=== PATIENT | male | born 1960 | race Caucasian/White ===

== ENCOUNTER → 2016-08-26 | Outpatient (CLI) | payer BC, MEDICARE ==
[2013-11-27 07:26] VITALS: BP 128/63
[~2016-08-26] MED LIST: ALBU0.63 NEB; ALBU8.5H8 IH; ALPR1TAB2 PO; ASPI-482 PO; CARI350T PO; CRESTOR5 MG PO; ESOM40CA PO; ESOM40CA25 PO; FLUT1DIS3 IH; METF500T4 PO; METO25TA9 PO; OXYC5TAB88 PO; OXYM10TA28 PO; OXYM40TA17 PO
[2016-08-26 08:39] LABS: ALBUMIN 3.8 g/dL (3.4-5.0); CALCIUM 9.2 mg/dL (8.5-10.1); CREATININE 0.9 mg/dL (0.7-1.3); GFR 87.6; POTASSIUM 4.4 mmol/L (3.5-5.1); TOTAL BILIRUBIN 0.4 mg/dL (0.2-1.0); TOTAL PROTEIN 7.6 g/dL (6.4-8.2)
== END | disposition home or self-care (01) ==
LOC: LAB 07:36
PROVIDERS: ATTEND Nurse Practitioner
DX: E78.5 Hyperlipidemia, unspecified (principal)
CPT/HCPCS: 36415; 80053; 80061; 83036

== ENCOUNTER → 2016-10-25 | Outpatient (CLI) | payer BC, MEDICARE ==
[2013-11-27 07:26] VITALS: BP 128/63
--- NOTE | 2016-10-25 15:33 | RAD ---
CT of the head without contrast, 10/25/2016: History: TIA, facial and left arm numbness, memory loss Comparison is made to a study from 10/29/2010. The ventricles are within normal limits in size. There is no shift of the midline structures. There is no evidence of acute intracranial hemorrhage or mass effect. There is calcific plaquing of the distal internal carotid arteries. IMPRESSION: No acute intracranial abnormality is detected. PQRS Compliance Statement: One or more of the following individualized dose reduction techniques were utilized for this examination: 1. Automated exposure control 2. Adjustment of the mA and/or kV according to patient size 3. Use of iterative reconstruction technique
--- NOTE | 2016-10-25 15:51 | RAD ---
CT of the neck without contrast, 10/25/2016: History: TIA, left facial numbness Noncontrast scans were obtained as requested. There is airway narrowing in the supraglottic portion of the larynx. This appears to be due to symmetric mucosal thickening. The subglottic trachea is unremarkable. The thyroid, parotid and submandibular gland show no abnormality. There is moderate calcific plaquing at both carotid bifurcations, worse on the right. Small cervical lymph nodes are evident without pathologic enlargement. There are moderate hypertrophic degenerative changes at scattered facet joints in the cervical spine, worse on the left. There are mild scattered marginal spurs. IMPRESSION: 1. Symmetric supraglottic airway narrowing may be on an inflammatory basis, perhaps accentuated by swallowing or phonation during the scanning process. A neoplastic etiology cannot be excluded. 2. Moderate calcific plaquing at the carotid bifurcations, right greater than left. PQRS Compliance Statement: One or more of the following individualized dose reduction techniques were utilized for this examination: 1. Automated exposure control 2. Adjustment of the mA and/or kV according to patient size 3. Use of iterative reconstruction technique
== END | disposition home or self-care (01) ==
LOC: CT 13:36
PROVIDERS: ATTEND Internal Medicine
DX: G45.9 Transient cerebral ischemic attack, unspecified (principal)
CPT/HCPCS: 70450; 70490

== ENCOUNTER → 2016-11-30 | Outpatient (CLI) | payer BC, MEDICARE ==
[2013-11-27 07:26] VITALS: BP 128/63
--- NOTE | 2016-11-30 16:53 | RAD ---
Carotid ultrasound, 11/30/2016: History: Left-sided weakness Duplex evaluation of the carotid arteries in the neck was performed including grayscale, color-flow and spectral Doppler analysis. There is intimal thickening in both common carotid arteries. There is mild focal plaquing in the mid left common carotid artery. There is mild to moderate atherosclerotic plaquing at both carotid bifurcations. The plaques are partially calcified. The peak systolic velocity in the right internal carotid artery is 113 cm/s with an end-diastolic velocity of 46 cm/s. The internal carotid to common carotid artery ratio is 1.3. On the left peak systolic velocity in the internal carotid artery is 119 cm/s with an end-diastolic velocity of 42 cm/s. The internal carotid to common carotid artery ratio is 1.4. These Doppler findings suggest luminal narrowing in the 0-50% diameter range bilaterally. Antegrade flow is present in both vertebral arteries in the neck. IMPRESSION: Mild to moderate atherosclerotic plaquing at both carotid bifurcations with underlying luminal narrowing in the 0-50% diameter range bilaterally. Note: Stenosis calculations for CTA, MRA and conventional angiography are based upon determination of the distal ICA diameter in accordance with the NASCET methodology. Stenosis calculations for Doppler studies are derived from validated velocity criteria which are known to correlate with NASCET methodology of determining stenosis.
== END | disposition home or self-care (01) ==
LOC: US 15:14
PROVIDERS: ATTEND Family Medicine
DX: I65.23 Occlusion and stenosis of bilateral carotid arteries (principal)
CPT/HCPCS: 93880

== ENCOUNTER → 2017-01-02 | Outpatient (CLI) | payer BC, MEDICARE ==
[2013-11-27 07:26] VITALS: BP 128/63
[~2017-01-02] MED LIST changes: +METO-239 PO; -METO25TA9 PO
[2017-01-02 09:20] LABS: ALBUMIN 3.8 g/dL (3.4-5.0); ALBUMIN/GLOBULIN RATIO 1.1 (1.0-1.7); CREATININE 0.9 mg/dL (0.7-1.3); GFR 87.6; POTASSIUM 4.8 mmol/L (3.5-5.1); TOTAL BILIRUBIN 0.2 mg/dL (0.2-1.0); TOTAL PROTEIN 7.4 g/dL (6.4-8.2)
== END | disposition home or self-care (01) ==
LOC: LAB 08:28
PROVIDERS: ATTEND Nurse Practitioner
DX: E78.2 Mixed hyperlipidemia (principal)
CPT/HCPCS: 36415; 80053; 80061

== ENCOUNTER → 2017-06-01 | Outpatient (CLI) | payer BC, MEDICARE ==
[2013-11-27 07:26] VITALS: BP 128/63
--- NOTE | 2017-06-01 21:41 | RAD ---
CT chest without intravenous contrast History: Chest wall pain Comparison: None. Technique: Helical CT of the chest was performed without intravenous contrast. Exposure: One or more of the following individualized dose reduction techniques were utilized for this examination: 1. Automated exposure control 2. Adjustment of the mA and/or kV according to patient size 3. Use of iterative reconstruction technique Findings: Coronary artery calcifications are seen. Mild aortic atherosclerosis is seen. Visualized thyroid is symmetric. No pericardial thickening is identified. Cardiac chambers do not appear enlarged. No mediastinal lymphadenopathy is seen. Trachea and mainstem bronchi appear patent. Mild centrilobular emphysematous changes of lungs can be seen. No pneumothorax or pleural effusion is identified. No acute airspace disease is appreciated. Images of the upper abdomen demonstrate cholecystectomy clips. No displaced rib fractures are identified. Impression: 1. No acute abnormality identified in the chest. 2. Mild emphysema. Electronically signed by: Willis Crenshaw MD (06/01/2017 9:38 PM) [facility]
== END | disposition home or self-care (01) ==
LOC: RAD 17:02
PROVIDERS: ATTEND Family Medicine
DX: R07.89 Other chest pain (principal); J43.9 Emphysema, unspecified; F17.210 Nicotine dependence, cigarettes, uncomplicated
CPT/HCPCS: 71250

== ENCOUNTER 2018-04-24 18:33 | Emergency (ER) | payer BC, MEDICARE ==
[~2018-04-24] VITALS: Ht 175.3 cm; Wt 101.3 kg
[~2018-04-24 18:33] MED LIST changes: +ALBU2.5V8 IH; -ALBU8.5H8 IH; +METF500T16 PO; -METF500T4 PO
--- NOTE | 2018-04-24 18:57 | ED.ADGEN ---
Past History Past Medical History: Anxiety, CAD, Diabetes, Hypertension, CO, Other Past Surgical History: Appendectomy, Cholecystectomy, Other Smoking: Greater than 1 pack/day Alcohol Use: None Drug Use: None Adult General Chief Complaint Chief Complaint epigastric pain HPI HPI 57 years old gentleman with multiple medical problems including #1 COPD next number coronary artery disease presented to the emergency department with epigastric pain radiating to the back describes as stabbing pain constant is being getting worse associated with nausea no vomiting no diarrhea no urgency no frequency no hematuria. Patient denies chest pain no shortness breath denies palpitations no syncope no presyncope Review of Systems Review of Systems Constitutional: Denies fever or chills [] Eyes: Denies change in visual acuity, redness, or eye pain [] HENT: Denies nasal congestion or sore throat [] Respiratory: Denies cough or shortness of breath [] Cardiovascular: No additional information not addressed in HPI [] GI: , vomiting, bloody stools or diarrhea [] : Denies dysuria or hematuria [] Musculoskeletal: Denies back pain or joint pain [] Integument: Denies rash or skin lesions [] Neurologic: Denies headache, focal weakness or sensory changes [] Endocrine: Denies polyuria or polydipsia [] All other systems were reviewed and found to be within normal limits, except as documented in this note. Current Medications Current Medications Current Medications Medications (Trade) Dose Ordered Sig/Grupo Start Time Stop Time Status Last Admin Dose Admin Multi-Ingredient Mouthwash/Gargle (Gi Cocktail) 20 ml 1X ONCE 04/24/18 20:45 04/24/18 20:46 DC 04/24/18 20:49 20 ML Pantoprazole Sodium (Protonix) 40 mg 1X ONCE 04/24/18 20:45 04/24/18 20:46 DC 04/24/18 20:49 40 MG Allergies Allergies Allergies Coded Allergies Type Severity Reaction Last Updated Verified Iodinated Contrast- Oral and IV Dye Allergy Severe Anaphylaxis 04/24/18 Yes Sulfa (Sulfonamide Antibiotics) Allergy Intermediate Nausea and Vomiting Yes Physical Exam Physical Exam Constitutional: Well developed, well nourished, no acute distress, non-toxic appearance. [] HENT: Normocephalic, atraumatic, bilateral external ears normal, oropharynx moist, no oral exudates, nose normal. [] Eyes: PERRLA, EOMI, conjunctiva normal, no discharge. [] Neck: Normal range of motion, no tenderness, supple, no stridor. [] Cardiovascular:Heart rate regular rhythm, no murmur [] Lungs & Thorax: Bilateral breath sounds clear to auscultation [] Abdomen: Bowel sounds normal, soft, epigastric tenderness, no masses, no pulsatile masses. [] Skin: Warm, dry, no erythema, no rash. [] Back: No tenderness, no CVA tenderness. [] Extremities: No tenderness, no cyanosis, no clubbing, ROM intact, no edema. [] Neurologic: Alert and oriented X 3, normal motor function, normal sensory function, no focal deficits noted. [] Psychologic: Affect normal, judgement normal, mood normal. [] Current Patient Data Vital Signs Vital Signs Date Time Temp Pulse Resp B/P (MAP) Pulse Ox O2 Delivery O2 Flow Rate FiO2 04/24/18 18:36 98.2 62 18 98 Room Air Lab Results Laboratory Tests Test 04/24/18 18:55 04/24/18 20:50 White Blood Count 8.4 x10^3/uL (4.0-11.0) Red Blood Count 4.66 x10^6/uL (4.30-5.70) Hemoglobin 16.1 g/dL (13.0-17.5) Hematocrit 47.8 % (39.0-53.0) Mean Corpuscular Volume 102 fL (79-100) H Mean Corpuscular Hemoglobin 35 pg (25-35) Mean Corpuscular Hemoglobin Concent 34 g/dL (31-37) Red Cell Distribution Width 13.5 % (11.5-14.5) Platelet Count 218 x10^3/uL (140-400) Neutrophils (%) (Auto) 64 % (31-73) Lymphocytes (%) (Auto) 24 % (24-48) Monocytes (%) (Auto) 8 % (0-9) Eosinophils (%) (Auto) 3 % (0-3) Basophils (%) (Auto) 1 % (0-3) Neutrophils # (Auto) 5.4 x10^3uL (1.8-7.7) Lymphocytes # (Auto) 2.0 x10^3/uL (1.0-4.8) Monocytes # (Auto) 0.7 x10^3/uL (0.0-1.1) Eosinophils # (Auto) 0.2 x10^3/uL (0.0-0.7) Basophils # (Auto) 0.1 x10^3/uL (0.0-0.2) Sodium Level 143 mmol/L (136-145) Potassium Level 3.7 mmol/L (3.5-5.1) Chloride Level 103 mmol/L (98-107) Carbon Dioxide Level 31 mmol/L (21-32) Anion Gap 9 (6-14) Blood Urea Nitrogen 6 mg/dL (8-26) L Creatinine 0.9 mg/dL (0.7-1.3) Estimated GFR (Cockcroft-Gault) 87.3 BUN/Creatinine Ratio 7 (6-20) Glucose Level 120 mg/dL (70-99) H Calcium Level 9.2 mg/dL (8.5-10.1) Total Bilirubin 0.3 mg/dL (0.2-1.0) Aspartate Amino Transferase (AST) 13 U/L (15-37) L Alanine Aminotransferase (ALT) 20 U/L (16-63) Alkaline Phosphatase 70 U/L (46-116) Troponin I Quantitative < 0.017 ng/mL (0-0.055) < 0.017 ng/mL (0-0.055) Total Protein 7.7 g/dL (6.4-8.2) Albumin 4.1 g/dL (3.4-5.0) Albumin/Globulin Ratio 1.1 (1.0-1.7) Lipase 132 U/L (73-393) EKG EKG [] Radiology/Procedures Radiology/Procedures [] Course & Med Decision Making Course & Med Decision Making Pertinent Labs and Imaging studies reviewed. (See chart for details) During the emergency medicine department stay patient remained asymptomatic he responded to GI cocktail 2 serial troponins were negative patient to be discharged home and follow up with his primary care provider [] Final Impression Final Impression [] Problems: (1) Epigastric abdominal pain Dragon Disclaimer Dragon Disclaimer This electronic medical record was generated, in whole or in part, using a voice recognition dictation system. ARI BALLARD MD Apr 24, 2018 18:57
[2018-04-24 19:17] LABS: BASO # 0.1 x10^3/uL (0.0-0.2); BASO % 1 % (0-3); EOS # 0.2 x10^3/uL (0.0-0.7); EOS % 3 % (0-3); HEMATOCRIT 47.8 % (39.0-53.0); HEMOGLOBIN 16.1 g/dL (13.0-17.5); LYMPH % 24 % (24-48); MEAN CORPUSCULAR HEMOGLOBIN 35 pg (25-35); MEAN CORPUSCULAR HGB CONC 34 g/dL (31-37); MEAN CORPUSCULAR VOLUME 102 fL (79-100); MONO # 0.7 x10^3/uL (0.0-1.1); MONO % 8 % (0-9); NEUT # 5.4 x10^3uL (1.8-7.7); NEUT % 64 % (31-73); PLATELET COUNT 218 x10^3/uL (140-400); RED BLOOD COUNT 4.66 x10^6/uL (4.30-5.70); RED CELL DISTRIBUTION WIDTH 13.5 % (11.5-14.5); WHITE BLOOD COUNT 8.4 x10^3/uL (4.0-11.0)
--- NOTE | 2018-04-24 19:27 | RAD ---
PROCEDURE: CHEST AP ONLY CLINICAL INDICATION: Chest pain COMPARISON: None FINDINGS: No pneumothorax identified. Cardiac and mediastinal contours unremarkable. No pulmonary consolidation or acute airspace disease. No acute osseous abnormalities identified. IMPRESSION: No pulmonary consolidation or acute airspace disease. Electronically signed by: Yinka Kate DO (04/24/2018 7:22 PM) [facility]
[2018-04-24 19:37] LABS: ALBUMIN 4.1 g/dL (3.4-5.0); ALBUMIN/GLOBULIN RATIO 1.1 (1.0-1.7); CALCIUM 9.2 mg/dL (8.5-10.1); CREATININE 0.9 mg/dL (0.7-1.3); GFR 87.3; POTASSIUM 3.7 mmol/L (3.5-5.1); TOTAL BILIRUBIN 0.3 mg/dL (0.2-1.0); TOTAL PROTEIN 7.7 g/dL (6.4-8.2)
--- NOTE | 2018-04-24 19:48 | RAD ---
PQRS Compliance statement: One or more of the following individualized dose reduction techniques were utilized for this examination: 1. Automated exposure control. 2. Adjustment of the mA and/or kV according to patient size. 3. Use of iterative reconstruction technique. Indication:Upper right sided abdomen pain TECHNIQUE: CT abdomen and pelvis without IV contrast with multiplanar reformats. COMPARISON: 06/01/2017 FINDINGS: Limited evaluation of solid abdominal and pelvic organs due to lack of IV contrast. Heart is normal in size. No pericardial or pleural effusion. Clear lung bases. Diffuse hepatic steatosis. Liver is normal in morphology. Spleen is unenlarged. Status post cholecystectomy. Noncontrast appearance of the pancreas is within normal limits. Adrenal glands demonstrate no nodularity. No nephrolithiasis or hydronephrosis. No enlarged retroperitoneal or pelvic adenopathy. Moderate diffuse atherosclerotic disease of the abdominal aorta and bilateral iliac arteries. No free pelvic fluid or ascites. No bowel obstruction. Appendix is not visualized. Small bilateral fat-containing inguinal hernia. Circumferential urinary bladder wall thickening is seen. The prostate and seminal vesicles show no large mass. No pneumoperitoneum. Bilateral L5 pars defect. No suspicious bony lesion. IMPRESSION: Limited evaluation of solid abdominal and pelvic organs due to lack of IV contrast. 1. Hepatic steatosis. 2. Circumferential wall thickening of the urinary bladder may be secondary to suboptimal distention or cystitis. Correlate with urinalysis. Electronically signed by: Yinka Kate DO (04/24/2018 7:43 PM) [facility]
[2018-04-24] MEDS: PANTOPRAZOLE 40 MG TABLET. PO ONE (20:49)
[2018-04-24] MEDS: LIDO:MAALOX 1:1 20 ML SINGLE DOSE. PO ONE (20:49)
[2018-04-24] MEDS ORDERED: OXYC30TA21 PO (21:19)
[2018-04-24] MEDS ORDERED: EVOL140S SQ (21:22)
[2018-04-24 21:45] VITALS: BP 134/73
--- NOTE | 2018-04-25 02:49 | EKG ---
[address] [address] Test Date: 2018-04-24 Test Time: 18:43:28 Pat Name: PAULY NICHOLS Department: Room: Gender: M Scrap Collector: : 1960 Requested By: ARI BALLARD Order Number: [id number] Reading MD: Measurements Intervals [place] Rate: 61 P: 66 MT: 136 QRS: 38 QRSD: 96 T: 34 QT: 408 QTc: 416 Interpretive Statements SINUS RHYTHM QRS(T) CONTOUR ABNORMALITY CONSIDER ANTEROLATERAL MYOCARDIAL DAMAGE POSSIBLY ABNORMAL ECG RI6.01 No previous ECG available for comparison
== END 2018-04-24 21:45 | disposition home or self-care (01) ==
LOC: ER 18:33
DX: R10.13 Epigastric pain (principal); R11.0 Nausea; J44.9 Chronic obstructive pulmonary disease, unspecified; F41.9 Anxiety disorder, unspecified; E11.9 Type 2 diabetes mellitus without complications; I25.10 Atherosclerotic heart disease of native coronary artery without angina pectoris; I25.2 Old myocardial infarction; F17.200 Nicotine dependence, unspecified, uncomplicated; Z90.89 Acquired absence of other organs; Z90.49 Acquired absence of other specified parts of digestive tract; Z91.041 Radiographic dye allergy status; Z88.2 Allergy status to sulfonamides
CPT/HCPCS: 36415; 71045; 74176; 80053; 83690; 84484; 85025; 93005; 99284-25

== ENCOUNTER → 2018-05-11 | Outpatient (CLI) | payer BC, MEDICARE ==
[2018-04-24 21:45] VITALS: BP 134/73
[~2018-05-11] MED LIST changes: +EVOL140S SQ; +OXYC30TA21 PO
--- NOTE | 2018-05-11 12:38 | RAD ---
CT of the head without contrast, 05/11/2018: HISTORY: Headache Noncontrast scans were obtained as requested, apparently secondary to an iodine allergy. Comparison is made to a study from 10/25/2016. The ventricles are within normal limits in size. There is no shift of the midline structures. There is no evidence of acute intracranial hemorrhage or mass effect. There is calcific plaquing of the distal internal carotid arteries. IMPRESSION: No acute intracranial abnormality is detected. CT of the neck without contrast, 05/11/2018: HISTORY: Left submandibular swelling Noncontrast scans were obtained and compared to a study from 10/25/2016. The parotid and submandibular glands are unremarkable. There is minimal streaky increased density in the subcutaneous soft tissues in the submandibular region bilaterally compatible with nonspecific edema. No discrete mass or fluid collection is evident. Several small submandibular lymph nodes are seen. These are larger than on the previous study, however, they do not appear to be pathologically enlarged. There are likely reactive in nature. The patient is edentulous. The laryngeal region is unremarkable. The thyroid gland shows no abnormality. No definite cervical adenopathy is seen. There is moderate calcific plaquing at both carotid bifurcations. Mild to moderate multilevel degenerative changes are present in the cervical spine. IMPRESSION: 1. Moderate streaky subcutaneous edema in the submandibular region. 2. No discrete fluid collection or neck mass is identified. 3. Moderate calcific plaquing at the carotid bifurcations. PQRS Compliance Statement: One or more of the following individualized dose reduction techniques were utilized for this examination: 1. Automated exposure control 2. Adjustment of the mA and/or kV according to patient size 3. Use of iterative reconstruction technique Electronically signed by: Diaz Harrison MD (05/11/2018 12:35 PM) [facility]
== END | disposition home or self-care (01) ==
LOC: CT 09:00
PROVIDERS: ATTEND Internal Medicine
DX: R22.0 Localized swelling, mass and lump, head (principal); I70.8 Atherosclerosis of other arteries
CPT/HCPCS: 70450; 70490

== ENCOUNTER → 2019-03-29 | Outpatient (CLI) | payer BC, MEDICARE ==
[~2019-03-29] MED LIST changes: -EVOL140S SQ; +EVOL140S2 SQ
[2019-03-29 13:00] LABS: ALBUMIN 3.9 g/dL (3.4-5.0); ALBUMIN/GLOBULIN RATIO 1.1 (1.0-1.7); CREATININE 0.9 mg/dL (0.7-1.3); POTASSIUM 3.5 mmol/L (3.5-5.1); TOTAL BILIRUBIN 0.5 mg/dL (0.2-1.0); TOTAL PROTEIN 7.4 g/dL (6.4-8.2)
== END | disposition home or self-care (01) ==
LOC: LAB 12:03
PROVIDERS: ATTEND Nurse Practitioner
DX: E78.5 Hyperlipidemia, unspecified (principal)
CPT/HCPCS: 36415; 80053; 80061

== ENCOUNTER → 2019-06-14 | Outpatient (CLI) | payer BC, MEDICARE ==
[~2019-06-14] MED LIST changes: +IOHEXOL 300 MG/ML 75 ML VIAL. IV ONE
--- NOTE | 2019-06-14 12:53 | RAD ---
CT study of the chest with and without contrast Clinical indications: Squamous cell carcinoma of the larynx. Hemoptysis. Shortness of breath. Upper back pain and chest pain. TECHNIQUE: Noncontrast helical CT scanning of the chest was performed. Following IV infusion of 75 cc of Omnipaque 300, repeat helical CT scanning of the chest was performed. PQRS compliance Statement One or more of the following individualized dose reduction techniques were utilized for this study: 1. Automated exposure control 2. Adjustment of the mA and/or kV according to patient size 3. Use of iterative reconstruction technique COMPARISON: June 01, 2017. FINDINGS: No hyperdense intramural hemorrhage is seen within the thoracic aorta. No focal aneurysmal dilatation or dissection of the thoracic aorta is seen. There is soft and calcified plaque formation involving the thoracic aorta. Calcified atheromatous disease of the coronary arteries is seen. The heart size is normal and no pericardial effusion is seen. No enlarged thoracic lymphadenopathy is evident. Small ill-defined groundglass lung infiltrates are seen within the periphery of right upper lobe. No lung mass is evident. Left lung field is clear. No pleural effusion or pneumothorax is evident. There is soft tissue thickening of the distal trachea which may be due to adherent mucus. Proximal bronchial tree is patent. No lytic process is seen. No adrenal mass is seen. IMPRESSION: Ill-defined round groundglass lung infiltrates are seen in the periphery of the right upper lobe consistent with infectious or inflammatory lung disease. This is not the typical appearance of metastatic disease. Calcified atheromatous disease of the coronary arteries. Electronically signed by: Andre Coronel MD (06/14/2019 12:50 PM) [facility]
--- NOTE | 2019-06-14 13:37 | RAD ---
CT study of the soft tissues of the neck with contrast Clinical indications: History of cancer of the larynx diagnosed 4 years ago. Hemoptysis and shortness of air. Upper back pain. TECHNIQUE: After IV infusion of 75 cc of Omnipaque 300, helical CT scanning of the neck from the base of skull down through the lung apices was performed. PQRS compliance Statement One or more of the following individualized dose reduction techniques were utilized for this study: 1. Automated exposure control 2. Adjustment of the mA and/or kV according to patient size 3. Use of iterative reconstruction technique COMPARISON: 05/11/2018. FINDINGS: No soft tissue mass of the true vocal cords or false vocal cords or larynx or epiglottis or aryepiglottic folds is seen. The preepiglottic fat space is unremarkable. No thyroid gland mass is seen. No enlarged cervical lymphadenopathy or soft tissue mass is evident. No abnormal enlargement of the palatine tonsils or adenoids is seen. The parotid and submandibular salivary glands are normal. No lytic process is seen. IMPRESSION: No soft tissue mass or enlarged cervical lymphadenopathy is evident. Electronically signed by: Andre Coronel MD (06/14/2019 1:34 PM) [facility]
== END | disposition home or self-care (01) ==
LOC: CT 08:52
PROVIDERS: ATTEND Otolaryngology
DX: C32.9 Malignant neoplasm of larynx, unspecified (principal); R91.8 Other nonspecific abnormal finding of lung field; I25.10 Atherosclerotic heart disease of native coronary artery without angina pectoris; I70.0 Atherosclerosis of aorta; R04.2 Hemoptysis
CPT/HCPCS: 70491; 71270; Q9967

== ENCOUNTER → 2020-08-25 | Outpatient (CLI) | payer BC, MEDICARE ==
[~2020-08-25] MED LIST changes: -IOHEXOL 300 MG/ML 75 ML VIAL. IV ONE
--- NOTE | 2020-08-25 18:15 | RAD ---
XR CHEST 2V INDICATION: COUGH COMPARISON STUDY: None. FINDINGS: Lungs: Normal lung volume. No pulmonary mass or consolidation. The tracheobronchial tree and hilar st ructures are normal. Pleura: No pleural effusion or pneumothorax. Heart and Mediastinum: The cardiomediastinal silhouette is normal. The great vessels of the thorax ar e normal. Bones and Soft Tissues: The bones and soft tissues are within normal limits. IMPRESSION: No acute cardiopulmonary process. Electronically signed by: Austin Coleman MD (08/25/2020 6:13 PM) [facility]
== END ==
LOC: PMG 17:24
PROVIDERS: ATTEND Nurse Practitioner Family
DX: R05 Cough (principal)
CPT/HCPCS: 71046

== ENCOUNTER 2021-03-03 11:14 | Emergency (ER) | payer BC, MEDICARE ==
[~2021-03-03] VITALS: Ht 175.3 cm; Wt 93.0 kg
[2021-03-03] MEDS ORDERED: DEXAMETHASONE SOD PHOS 10 MG/ML VIAL. PO ONE (12:00)
--- NOTE | 2021-03-03 12:17 | EKG ---
[address] [address] Test Date: 2021-03-03 Test Time: 12:09:03 Pat Name: PAULY NICHOLS Department: Room: Gender: F Customer Success Associate: NAIDA : 1960 Requested By: CHELSEA REYES Order Number: [id number] Reading MD: Deric Coleman Measurements Intervals [place] Rate: 65 P: 60 NC: 152 QRS: 36 QRSD: 88 T: 23 QT: 432 QTc: 455 Interpretive Statements SINUS RHYTHM NORMAL ECG RI6.02 Compared to ECG 04/24/2018 18:43:28 No significant changes Electronically Signed On 03-04-2021 12:35:46 [employer] by Deric Coleman
[2021-03-03 12:45] LABS: BASO % 1 % (0-3); EOS # 0.2 x10^3/uL (0.0-0.7); EOS % 4 % (0-3); HEMATOCRIT 45.4 % (36.0-47.0); HEMOGLOBIN 15.4 g/dL (12.0-15.5); LYMPH # 1.7 x10^3/uL (1.0-4.8); LYMPH % 29 % (24-48); MEAN CORPUSCULAR HEMOGLOBIN 35 pg (25-35); MEAN CORPUSCULAR HGB CONC 34 g/dL (31-37); MEAN CORPUSCULAR VOLUME 103 fL (79-100); MONO # 0.6 x10^3/uL (0.0-1.1); MONO % 11 % (0-9); NEUT # 3.3 x10^3uL (1.8-7.7); NEUT % 56 % (31-73); PLATELET COUNT 201 x10^3/uL (140-400); RED CELL DISTRIBUTION WIDTH 13.1 % (11.5-14.5); WHITE BLOOD COUNT 5.9 x10^3/uL (4.0-11.0)
[2021-03-03 12:52] LABS: CALCIUM 8.7 mg/dL (8.5-10.1); CREATININE 0.9 mg/dL (0.6-1.0); GFR 64.1; POTASSIUM 4.3 mmol/L (3.5-5.1)
[2021-03-03 12:57] LABS: INFLUENZA A PATIENT NEGATIVE (NEGATIVE); INFLUENZA B PATIENT NEGATIVE (NEGATIVE)
--- NOTE | 2021-03-03 13:06 | RAD ---
EXAM: XR CHEST 1V 03/03/2021 12:40 PM CLINICAL INDICATION: AP view of the chest COMPARISON: Chest radiograph 08/25/2020 TECHNIQUE: AP view of the chest FINDINGS: The heart is normal in size. Lungs are adequately expanded. No consolidation, pleural effus ion, or pneumothorax. No acute osseous abnormality. IMPRESSION: No acute cardiopulmonary abnormality. Electronically signed by: Meryl Montenegro MD (03/03/2021 1:04 PM) [id number]
[2021-03-03 13:07] LABS: ALBUMIN/GLOBULIN RATIO 1.2 (1.0-1.7); TOTAL BILIRUBIN 0.4 mg/dL (0.2-1.0); TOTAL PROTEIN 7.3 g/dL (6.4-8.2)
[2021-03-03] MEDS ORDERED: IPRATRPIUM/ALBUTEROL 0.5/2.5MG 3 ML NEBU. NEB ONE (13:15)
[2021-03-03] MEDS ORDERED: IPRATRPIUM/ALBUTEROL 0.5/2.5MG 3 ML NEBU. ONE (13:20)
[2021-03-03 13:55] VITALS: BP 161/88
[2021-03-03] MEDS ORDERED: PRED20TA PO (13:56)
[2021-03-03] MEDS ORDERED: FLUT1DIS IH (13:56)
--- NOTE | 2021-03-03 13:56 | PHYS DOC ---
Past History Past Medical History: Anxiety, CAD, COPD, Diabetes, Hypertension, AR, Other Additional Past Medical Histor: Sleep apnea, radiation for throat CA (CHELSEA REYES APRN) Past Surgical History: Angioplasty, Appendectomy, Cholecystectomy, Other (CHELSEA REYES APRN) Smoking: Greater than 1 pack/day Alcohol Use: None Drug Use: None (CHELSEA REYES APRN) General Adult EDM: Chief Complaint: SHORTNESS OF BREATH HPI: HPI: Patient is a 60-year-old male that presents today with a 3-day history of shortness of air. Patient does have a longstanding COPD/emphysema lung condition, for which she wears 2 L nasal cannula at night to sleep. He states that over the last 3 days has had increased shortness of air and congestion, he presented to the urgent care at [facility], and his oxygenation was 86% they then proceeded to send him to the emergency department for further evaluation. Patient states that his entire family has been sick with some kind of viral cold, he does state that he has had all 3 Covid vaccines, including his flu shot, he states he has had cough as well. Patient denies fever and chills, or chest pain. Patient was placed on 2 L nasal cannula here in the emergency department and oxygenation is up to 2 L per nasal cannula. She states that he does take DuoNeb treatments every 4-6 hours as well and he states they have have been helping, he does have a rescue inhaler that he has been using every 4 hours as well. Patient does had not have a primary sample card maker, he does see a [facility] physician for all of his medical needs. Patient at this time has refused an IV, he is okay with blood being drawn with a straight stick, would talk to him about possibly admitting for hypoxia due to low oxygenation level upon arrival he states that he has oxygen at home that he can be at home and be treated at home for any kind of illnesses. (CHELSEA REYES APRN) Review of Systems: Review of Systems: Constitutional: Denies fever or chills Eyes: Denies change in visual acuity HENT: Denies nasal congestion or sore throat Respiratory: shortness of air and cough Cardiovascular: Denies chest pain or edema GI: Denies abdominal pain, nausea, vomiting, bloody stools or diarrhea : Denies dysuria Musculoskeletal: Denies back pain or joint pain Integument: Denies rash Neurologic: Denies headache, focal weakness or sensory changes Endocrine: Denies polyuria or polydipsia Lymphatic: Denies swollen glands Psychiatric: Denies depression or anxiety (CHELSEA REYES APRN) Current Medications: Current Meds: Current Medications Medications (Trade) Dose Ordered Sig/Grupo Start Time Stop Time Status Last Admin Dose Admin Albuterol/ Ipratropium (Duoneb) 3 ml STK-MED ONCE 03/03/21 13:20 03/03/21 13:20 DC Dexamethasone Sodium Phosphate (Decadron) 10 mg 1X ONCE 03/03/21 12:00 03/03/21 12:01 DC 03/03/21 12:22 10 MG (CHELSEA REYES APRN) Allergies: Allergies: Allergies Coded Allergies Type Severity Reaction Last Updated Verified Iodinated Contrast Media Allergy Severe Anaphylaxis 03/03/21 Yes Sulfa (Sulfonamide Antibiotics) Allergy Intermediate Nausea and Vomiting 03/03/21 Yes (CHELSEA REYES APRN) Physical Exam: PE: Constitutional: Well developed, well nourished, no acute distress, non-toxic appearance. [] HENT: Normocephalic, atraumatic, bilateral external ears normal, oropharynx moist, no oral exudates, nose normal. [] Eyes: PERRLA, EOMI, conjunctiva normal, no discharge. [] Neck: Normal range of motion, no tenderness, supple, no stridor. [] Cardiovascular:Heart rate regular rhythm, no murmur [] Lungs & Thorax: Bilateral breath sounds wheezes throughout Abdomen: Bowel sounds normal, soft, no tenderness, no masses, no pulsatile masses. [] Skin: Warm, dry, no erythema, no rash. [] Back: No tenderness, no CVA tenderness. [] Extremities: No tenderness, no cyanosis, no clubbing, ROM intact, no edema. [] Neurologic: Alert and oriented X 3, normal motor function, normal sensory function, no focal deficits noted. [] Psychologic: Affect normal, judgement normal, mood normal. [] (CHELSEA REYES APRN) Current Patient Data: Labs: Laboratory Tests Test 03/03/21 12:13 03/03/21 12:17 Influenza Type A (Rapid) Negative (NEGATIVE) Influenza Type B (Rapid) Negative (NEGATIVE) SARS-CoV-2 Antigen (Rapid) Negative (NEGATIVE) White Blood Count 5.9 x10^3/uL (4.0-11.0) Red Blood Count 4.40 x10^6/uL (3.50-5.40) Hemoglobin 15.4 g/dL (12.0-15.5) Hematocrit 45.4 % (36.0-47.0) Mean Corpuscular Volume 103 fL (79-100) H Mean Corpuscular Hemoglobin 35 pg (25-35) Mean Corpuscular Hemoglobin Concent 34 g/dL (31-37) Red Cell Distribution Width 13.1 % (11.5-14.5) Platelet Count 201 x10^3/uL (140-400) Neutrophils (%) (Auto) 56 % (31-73) Lymphocytes (%) (Auto) 29 % (24-48) Monocytes (%) (Auto) 11 % (0-9) H Eosinophils (%) (Auto) 4 % (0-3) H Basophils (%) (Auto) 1 % (0-3) Neutrophils # (Auto) 3.3 x10^3uL (1.8-7.7) Lymphocytes # (Auto) 1.7 x10^3/uL (1.0-4.8) Monocytes # (Auto) 0.6 x10^3/uL (0.0-1.1) Eosinophils # (Auto) 0.2 x10^3/uL (0.0-0.7) Basophils # (Auto) 0.0 x10^3/uL (0.0-0.2) Sodium Level 144 mmol/L (136-145) Potassium Level 4.3 mmol/L (3.5-5.1) Chloride Level 103 mmol/L (98-107) Carbon Dioxide Level 32 mmol/L (21-32) Anion Gap 9 (6-14) Blood Urea Nitrogen 14 mg/dL (7-20) Creatinine 0.9 mg/dL (0.6-1.0) Estimated GFR (Cockcroft-Gault) 64.1 BUN/Creatinine Ratio 16 (6-20) Glucose Level 111 mg/dL (70-99) H Lactic Acid Level 0.6 mmol/L (0.4-2.0) Calcium Level 8.7 mg/dL (8.5-10.1) Total Bilirubin 0.4 mg/dL (0.2-1.0) Aspartate Amino Transferase (AST) 19 U/L (15-37) Alanine Aminotransferase (ALT) 31 U/L (14-59) Alkaline Phosphatase 69 U/L (46-116) Troponin I High Sensitivity 7 ng/L (4-50) Total Protein 7.3 g/dL (6.4-8.2) Albumin 4.0 g/dL (3.4-5.0) Albumin/Globulin Ratio 1.2 (1.0-1.7) Vital Signs: Vital Signs Date Time Temp Pulse Resp B/P (MAP) Pulse Ox O2 Delivery O2 Flow Rate FiO2 03/03/21 13:24 94 Nasal Cannula 2.0 03/03/21 11:15 98.3 72 19 132/87 (102) 86 Vital Signs Date Time Temp Pulse Resp B/P (MAP) Pulse Ox O2 Delivery O2 Flow Rate FiO2 03/03/21 13:24 94 Nasal Cannula 2.0 03/03/21 11:15 98.3 72 19 132/87 (102) (CHELSEA REYES RN ORTHOPEDIC) EKG: EKG: EKG done at [address] Sorto at 1214 no STEMI, interpretation shows normal sinus rhythm at a rate of 65 MI interval of 152 ms with a QT interval 455 ms [] (CHELSEA REYES RN ORTHOPEDIC) Radiology/Procedures: Radiology/Procedures: REASON: soa PROCEDURE: CHEST AP ONLY EXAM: XR CHEST 1V 03/03/2021 12:40 PM CLINICAL INDICATION: AP view of the chest COMPARISON: Chest radiograph 08/25/2020 TECHNIQUE: AP view of the chest FINDINGS: The heart is normal in size. Lungs are adequately expanded. No co nsolidation, pleural effusion, or pneumothorax. No acute osseous abnormality. IMPRESSION: No acute cardiopulmonary abnormality.[] (CHELSEA REYES RN ORTHOPEDIC) Heart Score: C/O Chest Pain: N/A Risk Factors: Risk Factors: DM, Current or recent (<one month) smoker, HTN, HLP, family history of CAD, obesity. Risk Scores: Score 0 - 3: 2.5% MACE over next 6 weeks - Discharge Home Score 4 - 6: 20.3% MACE over next 6 weeks - Admit for Clinical Observation Score 7 - 10: 72.7% MACE over next 6 weeks - Early Invasive Strategies (CHELSEA REYES APRN) Course & Med Decision Making: Course & Med Decision Making Pertinent Labs and Imaging studies reviewed. (See chart for details) 1346 patient states he is feeling somewhat better, sats currently on 2 L are 93%, patient does have oxygen at home and has the ability to place himself on 2 L at home for which she is on at night he can wear it all the time, patient encouraged to follow-up with the sample card maker soon as possible, will place patient on a prednisone dose, will also reorder his Advair puffer to be take twice daily. Patient instructed to return to the emergency department for increased shortness of breath, bluing of his lips or fingertips, or development of a fever (CHELSEA REYES APRN) Dragon Disclaimer: Dragon Disclaimer: This electronic medical record was generated, in whole or in part, using a voice recognition dictation system. (CHELSEA REYES APRN) Departure Departure: Impression: Primary Impression: COPD exacerbation Disposition: HOME / SELF CARE / HOMELESS Condition: STABLE Referrals: MONAE HARVEY MD (PCP) Additional Instructions: Follow up with Dr Medina or Dr Evan LIRA at [address] [place] [address] Continue with DuoNeb treatments every 4-6 hours Wear your oxygen 2 L per nasal cannula at all time Advair 1 puff every 12 hours Prednisone to start on Monday 60 mg once daily for 5 days Return to the emergency department for increased work of breathing, bluing of your lips, inability to catch her breath, or symptoms worsen Scripts Prednisone (PREDNISONE) 20 Mg Tablet 3 TAB PO DAILY for COPD for 5 Days, #15 TAB Prov: CHELSEA REYES APRN 03/03/21 Fluticasone/Salmeterol (ADVAIR 100-50 DISKUS) 1 Each Disk.w.dev 1 PUFF IH BID for COPD, #1 INHALER 1 Refill Prov: CHELSEA REYES APRN 03/03/21 Attending Signature Attending Signature I have reviewed the PA/SURGICAL SALES REPRESENTATIVE's note and plan of care. I was available for consultation as needed during the patient's visit in the emergency department. I agree with the clinical impression, plan, and disposition. (VIKY SORTO DO) CHELSEA REYES APRN Mar 03, 2021 13:56 VIKY SORTO DO Mar 04, 2021 01:11
== END 2021-03-03 14:10 | disposition home or self-care (01) ==
LOC: ER 11:14
DX: J44.1 Chronic obstructive pulmonary disease with (acute) exacerbation (principal); F41.9 Anxiety disorder, unspecified; E11.9 Type 2 diabetes mellitus without complications; I10 Essential (primary) hypertension; I25.2 Old myocardial infarction; F17.200 Nicotine dependence, unspecified, uncomplicated; Z20.822 Contact with and (suspected) exposure to COVID-19; Z88.8 Allergy status to other drugs, medicaments and biological substances; Z88.2 Allergy status to sulfonamides
CPT/HCPCS: 71045; 80053; 83605; 84484; 85025; 87426; 87804; 93005; 94640; 99285; C9803; J1100; U0003

== ENCOUNTER → 2021-08-15 | Outpatient (CLI) | payer OTHER, BC, MEDICARE ==
[~2021-08-15] MED LIST changes: +FLUT1DIS IH; +PRED20TA PO
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
== END ==
LOC: DXRAD 12:17
PROVIDERS: ATTEND Nurse Practitioner Family
DX: S19.9XXA Unspecified injury of neck, initial encounter (principal); M47.812 Spondylosis without myelopathy or radiculopathy, cervical region; M25.512 Pain in left shoulder; Z68.29 Body mass index [BMI] 29.0-29.9, adult; V89.2XXA Person injured in unspecified motor-vehicle accident, traffic, initial encounter
CPT/HCPCS: 72040; 73030